=== PATIENT | female | born 1980 | race Caucasian/White ===

== ENCOUNTER 2021-05-14 07:05 | Emergency (ER) | payer OTHER ==
[~2021-05-14] VITALS: Ht 172.7 cm; Wt 73.6 kg
--- NOTE | 2021-05-14 07:45 | NUR ---
assumed care of pt. pt here or L flank pain s/o last nocs/this AM. pt has no urinary c/o. denies hx of kidney stones. denies . also having nausea pt ambulating to BR for urine sample
[2021-05-14] MEDS ORDERED: KETOROLAC 30 MG/1 ML IVPush ONE ×2 (08:00→11:00)
[2021-05-14] MEDS ORDERED: ONDANSETRON 2MG/ML, 2ML IVPush ONE (08:00)
[2021-05-14] MEDS ORDERED: SODIUM CHLORIDE FLUSH 10ML SYR IVF ONE (08:00)
--- NOTE | 2021-05-14 08:00 | NUR ---
pt to be medicated. pt declines morphine at this time and states that she would like to try non-narcotic medication first
[2021-05-14] MEDS ORDERED: ONDANSETRON 2MG/ML, 2ML ONE (08:04)
[2021-05-14] MEDS ORDERED: KETOROLAC 30 MG/1 ML ONE ×2 (08:05→10:41)
[2021-05-14 08:16] LABS: BASOPHILS % (AUTO) 1 % (0-1); EOSINOPHILS % (AUTO) 1 % (1-7); LYMPHOCYTES % (AUTO) 16 % (22-44); MEAN CORPUSCULAR HEMOGLOBIN 30.9 pg (27.0-34.8); MEAN CORPUSCULAR HGB CONC 33.6 g/dL (32.4-35.8); MEAN PLATELET VOLUME 8.6 fL (7.4-10.4); MONOCYTES % (AUTO) 8 % (2-9); NEUTROPHILS % (AUTO) 75 % (42-75); PLATELET COUNT 316 x10^3/uL (130-400); RED BLOOD COUNT 4.28 x10^6/uL (3.82-5.3); RED CELL DISTRIBUTION WIDTH 13.7 % (9.6-15.2)
[2021-05-14] MEDS ORDERED: LORA-446 PO (08:16)
[2021-05-14] MEDS ORDERED: ATEN25TA PO (08:16)
[2021-05-14] MEDS ORDERED: MONT10TA6 PO (08:16)
--- NOTE | 2021-05-14 08:24 | NUR ---
p positionig for comfort and warm blankets given. pt updated on POC
[2021-05-14 08:26] LABS: ALBUMIN 3.9 g/dL (3.4-5.0); MICROSCOPIC AUTO
[2021-05-14 08:32] LABS: ALANINE AMINOTRANSFERASE 30 U/L (12-78); ALKALINE PHOSPHATASE 88 U/L (45-117); BILIRUBIN,TOTAL 0.4 mg/dL (0.2-1.0); CREATININE 0.68 mg/dL (0.55-1.02)
--- NOTE | 2021-05-14 08:35 | NUR ---
pt reports minimal relief after pain meds. pt still declines morphine at this time. pt reports that she has been packing and lifting boxes for her boss adn has been doing some heavy lifting ove the last couple of days. pt declines suggestion of muscle relaxer at this time pt positioning and warm pack applied for comfort
--- NOTE | 2021-05-14 08:45 | NUR ---
report to Miroslava VERDUGO
[2021-05-14 08:46] LABS: ANION GAP 8 mmol/L (5-15); CHLORIDE 103 mmol/L (98-107)
--- NOTE | 2021-05-14 08:46 | NUR ---
Report received and care assumed. Pt noted to have order for urine culture. Awaiting other labs. 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
[2021-05-14] MEDS ORDERED: MORPHINE SULFATE 4 MG/ML, 1ML ONE ×2 (08:56→10:41)
[2021-05-14] MEDS: MORPHINE SULFATE 4 MG/ML, 1ML IVPush PRN ×2 (08:59→10:53)
--- NOTE | 2021-05-14 09:01 | NUR ---
Pt medicated with Morphine 2mg Slow IVP with mild c/o nausea after admin and slowly dissipating L lower back pain.
--- NOTE | 2021-05-14 09:25 | NUR ---
Pt coming back from CT. States pain is still present after named account executive and rates it 6/10 now with limited effect per rating after named account executive noted. notified.
--- NOTE | 2021-05-14 09:36 | NUR ---
CT results and lab results reviewed, and chart marked for recheck by MD at this time.
--- NOTE | 2021-05-14 09:47 | NUR ---
in for recheck. MD assisted pt to restroom and requested post void bladder scan. Scan performed upon return to room x2 with both scans showing 0mL urine present. MD notified of results through ED board notes section.
--- NOTE | 2021-05-14 09:50 | NUR ---
MD back to room to speak with pt about suggested plan of care.
[2021-05-14] MEDS ORDERED: MAALOX/HYOSCYAMINE/LIDOCAINE 45 ML BTL ONE (09:56)
--- NOTE | 2021-05-14 09:59 | NUR ---
GI cocktail given.
[2021-05-14] MEDS ORDERED: MAALOX/HYOSCYAMINE/LIDOCAINE 45 ML BTL PO ONE (10:00)
--- NOTE | 2021-05-14 10:02 | NUR ---
Lab results reviewed, positive trichomonas, and chart marked for recheck by .
[2021-05-14] MEDS ORDERED: METHOCARBAMOL 750 MG TABLET ONE (10:41)
[2021-05-14] MEDS ORDERED: METHOCARBAMOL 750 MG TABLET PO ONE (11:00)
[2021-05-14] MEDS ORDERED: MORPHINE SULFATE 4 MG/ML, 1ML IVPush PRN (11:00)
[2021-05-14 11:24] VITALS: BP 139/88
== END 2021-05-14 11:26 | disposition home or self-care (01) ==
LOC: ED 08:46
DX: R10.9 Unspecified abdominal pain (principal); R06.02 Shortness of breath; F17.200 Nicotine dependence, unspecified, uncomplicated
CPT/HCPCS: 36415; 74176; 80053; 81001; 83690; 84703; 85025; 87086; 93005; 96374; 96375; 96376; 99285; J1885; J2270; J2405